=== PATIENT | male | born 2000 | race African-American/Black ===

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

== ENCOUNTER 2023-09-08 19:35 | Emergency (ER) | payer OTHER, SELFPAY ==
[2023-09-08 19:47] VITALS: BP 159/87; PULSE 124; RESP 20; TEMP 37.4; O2SAT 99
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
== END 2023-09-08 19:59 | disposition home or self-care (01) ==
PROVIDERS: Emergency Provider Nurse Practitioner
DX: S56.912A Strain of unspecified muscles, fascia and tendons at forearm level, left arm, initial encounter (principal); V49.40XA Driver injured in collision with unspecified motor vehicles in traffic accident, initial encounter
CPT/HCPCS: 99212; G0463